=== PATIENT | male | born 1945 | race Caucasian/White ===

== ENCOUNTER 2021-12-18 09:32 | Outpatient (CLI) | payer MEDICARE, SELFPAY ==
--- NOTE | 2021-12-18 11:15 | NEURO_ITS ---
Impression: # Complains of cramps in legs. History of back surgery. 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 # Needle/EMG exam revealed neurogenic changes particularly in bilateral EDB. # Clinical correlation recommended; Possibility of higher involvement cannot be ruled out. Motor Nerve Conduction Lower Extremities Peroneal Nerve Conduction Velocity (m/sec) Terminal Latency (msec) Response Voltage(mV) Popliteal space-Ankle Ankle Extensor Dig Brevis Popliteal space Ankle Right 35 4.2 2 1 Left 39 4.8 1 1 Tibial Nerve Conduction Velocity (m/sec) Terminal Latency (msec) Response Voltage(mV) Popliteal space-Ankle Ankle-Extensor Dig Brevis Popliteal space Ankle Right 35 4.7 1 1 Left 39 4.3 1 1 F-waves Peroneal Nerve (ms) Tibial Nerve (ms) Right 65.6 67.6 Left 65.6 66.9 Sensory Nerve Conduction Lower Extremities Sural Nerve Stimulation Terminal Latency (msec) Ankle Response Voltage (uV) Ankle Response Velocity (m/sec) Right 4.8 17 33 Left NR NR NR Superficial Peroneal Nerve Stimulation Terminal Latency (msec) Ankle Response Voltage (uV) Ankle Response Velocity (m/sec) Right NR NR NR Left NR NR NR Left Right Muscles Examined Fibrillation Fasciculation Scarcity Scarcity Voltage Voltage Duration Duration Left Right Left Right Left Right Left Right Left Right X X Ant Tibialis + + >12ms >12ms X X Gastroc + + >12ms >12ms X X Fibularis Long + + >12ms >12ms X X Flex Dig Long + + >12ms >12ms X X Ext Dig Brev +++ +++ Incr Incr >12ms >12ms Abd Hallucis Quadriceps Paraspinals MTDD
== END 2021-12-18 09:33 | disposition home or self-care (01) ==
PROVIDERS: Visit Provider Neurological Surgery
DX: R20.0 Anesthesia of skin (principal); R20.2 Paresthesia of skin
CPT/HCPCS: 95886; 95910